=== PATIENT | male | born 1975 | race Asian ===

== ENCOUNTER 2016-08-15 14:34 | Emergency (ER) | payer SELFPAY ==
[~2016-08-15] VITALS: Ht 170.2 cm; Wt 74.8 kg
[2016-08-15 14:55] VITALS: BP_SYST 133
[2016-08-15 15:07] LABS: BASOPHILS # (AUTO) 0.1 K/uL (0.0-0.2); BASOPHILS % (AUTO) 0.8 % (0.0-2.0); EOSINOPHILS # (AUTO) 0.4 K/uL (0.0-0.4); EOSINOPHILS % (AUTO) 5.1 % (0.0-4.0); HEMATOCRIT 43.3 % (36-54); HEMOGLOBIN 15.1 g/dL (14.0-18.0); LYMPHOCYTES # (AUTO) 1.7 K/uL (1.0-5.5); LYMPHOCYTES % (AUTO) 24.3 % (20.5-51.5); MEAN CORPUSCULAR HEMOGLOBIN 30 pg (27-31); MEAN CORPUSCULAR HGB CONC 35 % (32-36); MEAN CORPUSCULAR VOLUME 86 fL (79.0-98.0); MONOCYTES # (AUTO) 0.4 K/uL (0.0-1.0); MONOCYTES % (AUTO) 5.5 % (1.7-9.3); NEUTROPHILS # (AUTO) 4.3 K/uL (1.8-7.7); NEUTROPHILS % (AUTO) 64.3 % (40.0-70.0); PLATELET COUNT (AUTO) 310 K/uL (130-430); RED BLOOD CELL COUNT(AUTO) 5.03 MIL/uL (4.2-6.2); RED CELL DISTRIBUTION WIDTH 12.3 % (9.0-15.0); WHITE BLOOD COUNT (AUTO) 6.9 K/uL (4.8-10.8)
[2016-08-15 15:31] LABS: ALBUMIN 4.2 g/dL (3.4-4.8); CALCIUM 8.9 mg/dL (8.4-11.0); CREATININE 0.98 mg/dL (0.55-1.30); POTASSIUM 3.9 mmol/L (3.5-5.1); TOTAL BILIRUBIN 0.3 mg/dL (0.0-1.0); TOTAL PROTEIN, SERUM 7.4 g/dL (6.4-8.3)
--- NOTE | 2016-08-15 16:49 | NUR ---
AMBULATED TO BED 1
--- NOTE | 2016-08-15 17:00 | NUR ---
Pt presents to ED c/o weakness and facial numbness. Pt s/s resolved prior to arrival. Pt has no acute distress noted. pt reports h/o hyperlipidemia.
--- NOTE | 2016-08-15 17:05 | NUR ---
ER at bedside examining patient.
[2016-08-15 17:15] VITALS: BP_SYST 133
--- NOTE | 2016-08-15 17:15 | NUR ---
Patient given written and verbal discharge instructions and verbalizes understanding. ER MD discussed with patient the results and treatment provided. Given copies of tests performed in ER. Patient in stable condition. ID arm band removed. Patient educated on pain management and to follow up with PMD. Pain Scale 0. Opportunity for questions provided and answered.
== END 2016-08-15 17:15 | disposition home or self-care (01) ==
LOC: SED 14:34
DX: F41.9 Anxiety disorder, unspecified (principal); R20.0 Anesthesia of skin; E78.00 Pure hypercholesterolemia, unspecified
CPT/HCPCS: 36415; 70450-TC; 80053; 83735-TC; 85025; 93005; 99285